=== PATIENT | female | born 1965 | race African-American/Black ===

== ENCOUNTER 2016-12-16 09:23 | Outpatient (CLI) | payer OTHER ==
--- NOTE | 2016-12-16 12:03 | XRay Report ---
X-RAY RIGHT FOOT THREE VIEWS: 12/16/16 09:23:00 CLINICAL: Heel pain. FINDINGS: Small Achilles spur and no plantar spur. The rest of the bones and joints are normal. Mild soft tissue swelling of the dorsum of the foot. No soft tissue air or foreign body. IMPRESSION: Mild Achilles enthesopathy and no plantar enthesopathy. Nonspecific soft tissue swelling.
--- NOTE | 2016-12-16 14:03 | Mammography Report ---
BILATERAL DIGITAL SCREENING MAMMOGRAM with CAD: 12/16/16 09:23:00 CLINICAL: Routine screening. COMPARISON:03/30/15 FINDINGS: The breasts are almost entirely fatty. No mass, architectural distortion or suspicious calcifications. IMPRESSION: No mammographic evidence of malignancy. BI-RADS CATEGORY: 1 - - Negative RECOMMENDATION: Routine mammographic screening in one year. COMMENT: Patient follow-up letters are generated by our [employer] application.
== END 2016-12-16 09:24 | disposition home or self-care (01) ==
LOC: SPVWC 09:23
PROVIDERS: ATTEND Internal Medicine
DX: Z12.31 Encounter for screening mammogram for malignant neoplasm of breast (principal); M77.51 Other enthesopathy of right foot and ankle
CPT/HCPCS: 73630; G0202; 77067

== ENCOUNTER 2018-02-09 09:07 | Outpatient (CLI) | payer OTHER ==
--- NOTE | 2018-02-09 16:13 | Mammography Report ---
BILATERAL DIGITAL SCREENING MAMMOGRAM with CAD: 02/09/18 09:07:00 CLINICAL: Routine screening. COMPARISON:12/16/16 FINDINGS: The breasts are almost entirely fatty. No mass, architectural distortion or suspicious calcifications. IMPRESSION: No mammographic evidence of malignancy. BI-RADS CATEGORY: 1 - - Negative RECOMMENDATION: Routine mammographic screening in one year. COMMENT: Patient follow-up letters are generated by our [employer] application.
== END 2018-02-09 09:08 | disposition home or self-care (01) ==
LOC: SPVWC 09:07
PROVIDERS: ATTEND Internal Medicine
DX: Z12.31 Encounter for screening mammogram for malignant neoplasm of breast (principal)
CPT/HCPCS: 77067

== ENCOUNTER 2020-03-27 09:07 | Outpatient (CLI) | payer OTHER ==
--- NOTE | 2020-03-27 15:21 | Mammography Report ---
DIGITAL SCREENING MAMMOGRAM WITH CAD, 03/27/2020 INDICATION: Routine screening mammography. SCREENING MAMMO TECHNIQUE: Digital bilateral 2D mammography was obtained in the craniocaudal and mediolateral obliq ue projections. This examination was interpreted with the benefit of Computer-Aided Detection analysi s. COMPARISON: 12/16/2016 FINDINGS: Breast Density: There are scattered areas of fibroglandular density. There is no evidence of dominant mass, suspicious calcifications or architectural distortion in eithe r breast. IMPRESSION: No evidence of malignancy Follow up recommendation: Routine yearly BI-RADS Category 1: Negative. A "normal" or negative report should not discourage follow up or biopsy of a clinically significant f inding. A written summary of these findings will be mailed to the patient. The patient will be entered into a mammography reporting system which will generate a reminder letter for the patient's next appointmen t at the appropriate interval. The [employer] recommends yearly mammograms starting at age 40 and continuing as l yen as a woman is in good health. Breast MRI is recommended for women with an approximate 20-25% or greater lifetime risk of breast cancer, including women with a strong family history of breast or ova bruce cancer or who have been treated for Hodgkin's disease. Signer Name: Israel Lacey MD Signed: 03/27/2020 3:16 PM Workstation Name: [id number]
== END 2020-03-27 09:08 | disposition home or self-care (01) ==
LOC: SPVWC 09:07
PROVIDERS: ATTEND Physician Assistant Medical
DX: Z12.31 Encounter for screening mammogram for malignant neoplasm of breast (principal)
CPT/HCPCS: 77067

== ENCOUNTER 2022-02-17 08:44 | Outpatient (CLI) | payer OTHER ==
--- NOTE | 2022-02-18 17:38 | Mammography Report ---
DIGITAL SCREENING MAMMOGRAM WITH CAD, 02/17/2022 CLINICAL INFORMATION / INDICATION: Routine screening mammography. TECHNIQUE: Digital bilateral 2D mammography was obtained in the craniocaudal and mediolateral obliqu e projections. This examination was interpreted with the benefit of Computer-Aided Detection analysis . COMPARISON: 03/27/2020, 02/09/2018, 12/16/2016 FINDINGS: Breast Density: There are scattered areas of fibroglandular density. No dominant mass, suspicious calcifications, or architectural distortion in either breast. There has been no significant interval change. IMPRESSION: No mammographic evidence of malignancy. Follow up recommendation: Routine yearly screening mammogram. BI-RADS Category 1: NEGATIVE A "normal" or negative report should not discourage follow up or biopsy of a clinically significant f inding. A written summary of these findings will be mailed to the patient. The patient will be entered into a mammography reporting system which will generate a reminder letter for the patient's next appointmen t at the appropriate interval. The [employer] recommends yearly mammograms starting at age 40 and continuing as l yen as a woman is in good health. Breast MRI is recommended for women with an approximate 20-25% or greater lifetime risk of breast cancer, including women with a strong family history of breast or ova bruce cancer or who have been treated for Hodgkin's disease. Signer Name: Sandy Anthony MD Signed: 02/18/2022 5:34 PM Workstation Name: [id number]
== END 2022-02-17 08:45 | disposition home or self-care (01) ==
LOC: SPVWC 08:44
PROVIDERS: ATTEND Physician Assistant Medical
DX: Z12.31 Encounter for screening mammogram for malignant neoplasm of breast (principal)
CPT/HCPCS: 77067